=== PATIENT | female | born 1960 | race Caucasian/White ===

== ENCOUNTER → 2018-05-04 13:06 | Outpatient (CLI) | payer MEDICAID, SELFPAY ==
[2018-05-04 13:21] LABS: Abs Immature Grans 0.01 k/cumm (0.0-0.09); Absolute Basophil Count 0.02 k/cumm (0.0-0.2); Absolute Eosinophil Count 0.06 k/cumm (0.0-0.7); Absolute Lymphocyte Count 1.43 k/cumm (1.2-3.4); Absolute Monocyte Count 0.36 k/cumm (0.11-0.7); Absolute Neutrophil Count 2.41 k/cumm (1.2-6.7); Basophils % 0.5; Eosinophils % 1.4; HCT 38.3 % (36.0-46.0); HGB 13.3 g/dL (12.0-15.5); Immature Grans % 0.2; Lymphocytes % 33.3; Mean Corp. HGB Concentration 34.7 g/dL (32.0-36.0); Mean Corpuscular Hemoglobin 30.2 pg (27.0-33.0); Mean Corpuscular Volume 86.8 fL (80-95); Mean Platelet Volume 9.2 fL (8.0-11.0); Monocytes % 8.4; Neutrophils % 56.2; Platelet Count 194 x1000/uL (130-400); RBC 4.41 m/cumm (4.00-5.20); White Blood Cell Count 4.29 k/cumm (4.4-10.8)
[2018-05-04 13:54] LABS: ALT 20 U/L (12-78); AST 15 U/L (15-37); Alkaline Phosphatase 75 U/L (46-116); Anion Gap 5.7 mmol/L (3-11); BUN 16 mg/dL (7-18); Bilirubin, Total 1.1 mg/dL (0.2-1.0); CO2 29.3 mmol/L (21.0-32.0); CREATININE 0.84 mg/dL (0.55-1.02); Chloride 106 mmol/L (98-107); Glucose 127 mg/dL (70-100); Potassium 3.5 mmol/L (3.5-5.1); Sodium 141 mmol/L (136-145)
== END ==
PROVIDERS: PCP Family Medicine; Visit Provider Internal Medicine
DX: C50.912 Malignant neoplasm of unspecified site of left female breast (principal); Z17.0 Estrogen receptor positive status [ER+]
CPT/HCPCS: 36415; 80053; 85025

== ENCOUNTER 2018-11-25 11:15 | Outpatient (CLI) | payer MEDICAID, SELFPAY ==
[2018-11-25 11:31] LABS: Abs Immature Grans 0.01 k/cumm (0.0-0.09); Absolute Basophil Count 0.03 k/cumm (0.0-0.2); Absolute Eosinophil Count 0.07 k/cumm (0.0-0.7); Absolute Lymphocyte Count 1.89 k/cumm (1.2-3.4); Absolute Monocyte Count 0.46 k/cumm (0.11-0.7); Absolute Neutrophil Count 2.49 k/cumm (1.2-6.7); Basophils % 0.6; Eosinophils % 1.4; HCT 38.6 % (36.0-46.0); HGB 13.4 g/dL (12.0-15.5); Immature Grans % 0.2; Lymphocytes % 38.2; Mean Corp. HGB Concentration 34.7 g/dL (32.0-36.0); Mean Corpuscular Hemoglobin 29.8 pg (27.0-33.0); Mean Corpuscular Volume 85.8 fL (80-95); Mean Platelet Volume 9.3 fL (8.0-11.0); Monocytes % 9.3; Neutrophils % 50.3; Platelet Count 203 x1000/uL (130-400); RBC Distribution Width 13.1 % (11.7-14.6); White Blood Cell Count 4.95 k/cumm (4.4-10.8)
[2018-11-25 11:43] LABS: ALT 22 U/L (12-78); AST 18 U/L (15-37); Albumin 4.2 g/dL (3.4-5.0); Alkaline Phosphatase 102 U/L (46-116); Anion Gap 7.8 mmol/L (3-11); BUN 17 mg/dL (7-18); Bilirubin, Total 1.2 mg/dL (0.2-1.0); CO2 28.2 mmol/L (21.0-32.0); CREATININE 0.78 mg/dL (0.55-1.02); Calcium 9.1 mg/dL (8.5-10.1); Chloride 103 mmol/L (98-107); Glucose 98 mg/dL (70-100); Potassium 4.1 mmol/L (3.5-5.1); Sodium 139 mmol/L (136-145); Total Protein 7.2 g/dL (6.4-8.2)
== END 2018-11-25 11:35 ==
PROVIDERS: PCP Family Medicine; Visit Provider Internal Medicine
DX: C50.811 Malignant neoplasm of overlapping sites of right female breast (principal); Z17.0 Estrogen receptor positive status [ER+]
CPT/HCPCS: 36415; 80053; 85025

== ENCOUNTER 2018-12-09 00:15 | Outpatient (CLI) | payer MEDICAID, SELFPAY ==
--- NOTE | 2018-12-09 13:32 | DI.MAMMO_ITS ---
SYMPTOMS/DIAGNOSIS: ANNUAL SCREENING, PERSONAL H/O BREAST CA, Z17.0 RIGHT BREAST MAMMOGRAM: Mammograms were interpreted according to the usual protocol including computer analysis with CAD system, tomosynthesis and C view imaging. The patient is status post left mastectomy for CA. The right breast is heterogeneously radiodense, which lowers the sensitivity of the study. There is no dominant mass. There are no suspicious calcifications and there has been no significant interval change when compared with prior images. SUMMARY: No evidence of malignancy, category 1. Yearly screening mammography is recommended. Breast density category C. MQSA ASSESSMENT OF FINDINGS: Negative. Category 1. Patient will receive a letter notifying them of these results. Bi-RADS category C. The breasts are heterogeneously dense, which may obscure small masses.
== END 2018-12-09 00:35 ==
PROVIDERS: PCP Family Medicine; Visit Provider Internal Medicine
DX: Z12.31 Encounter for screening mammogram for malignant neoplasm of breast (principal); Z80.3 Family history of malignant neoplasm of breast; Z90.12 Acquired absence of left breast and nipple
CPT/HCPCS: 77063; 77067

== ENCOUNTER 2019-06-16 12:40 | Outpatient (CLI) | payer MEDICAID, SELFPAY ==
[2019-06-16 13:10] LABS: Abs Immature Grans 0.02 k/cumm (0.0-0.09); Absolute Basophil Count 0.02 k/cumm (0.0-0.2); Absolute Eosinophil Count 0.09 k/cumm (0.0-0.7); Absolute Lymphocyte Count 1.61 k/cumm (1.2-3.4); Absolute Monocyte Count 0.47 k/cumm (0.11-0.7); Absolute Neutrophil Count 2.81 k/cumm (1.2-6.7); Basophils % 0.4; Eosinophils % 1.8; HCT 39.4 % (36.0-46.0); HGB 13.6 g/dL (12.0-15.5); Immature Grans % 0.4; Lymphocytes % 32.1; Mean Corp. HGB Concentration 34.5 g/dL (32.0-36.0); Mean Corpuscular Hemoglobin 29.8 pg (27.0-33.0); Mean Corpuscular Volume 86.4 fL (80-95); Mean Platelet Volume 9.2 fL (8.0-11.0); Monocytes % 9.4; Neutrophils % 55.9; Platelet Count 228 x1000/uL (130-400); RBC 4.56 m/cumm (4.00-5.20); White Blood Cell Count 5.02 k/cumm (4.4-10.8)
[2019-06-16 14:33] LABS: ALT 17 U/L (14-59); AST 16 U/L (15-37); Albumin 4.2 g/dL (3.4-5.0); Alkaline Phosphatase 69 U/L (46-116); Anion Gap 6.2 mmol/L (3-11); BUN 15 mg/dL (7-18); Bilirubin, Total 1.1 mg/dL (0.2-1.0); CO2 31.8 mmol/L (21.0-32.0); CREATININE 0.81 mg/dL (0.55-1.02); Calcium 8.9 mg/dL (8.5-10.1); Chloride 101 mmol/L (98-107); Glucose 148 mg/dL (70-100); Potassium 3.9 mmol/L (3.5-5.1); Sodium 139 mmol/L (136-145)
== END 2019-06-16 13:00 ==
PROVIDERS: PCP Family Medicine; Visit Provider Internal Medicine
DX: C50.811 Malignant neoplasm of overlapping sites of right female breast (principal); Z17.0 Estrogen receptor positive status [ER+]
CPT/HCPCS: 36415; 80053; 85025

== ENCOUNTER 2020-01-10 16:01 | Emergency (ER) | payer MEDICAID, SELFPAY ==
[2020-01-10 16:05] VITALS: BP 116/99; PULSE 71; RESP 16; TEMP 36.2; O2SAT 98
--- NOTE | 2020-01-10 16:05 | ED.GENADUL_ITS ---
Discharge Plan Disposition Patient Disposition: HOME Condition: Good Discharge Details Chief Complaint: Laceration Clinical Impression: Puncture wound of hand, Hand laceration Primary Care Provider: Floyd Carrero ED Provider: Sahara Polanco Home Meds and New Rx's Prescriptions: New cephalexin [Keflex] 500 mg capsule 500 mg PO QID Qty: 20 RF: 0 Continued Excedrin Extra Strength 1 EACH tablet 2 cap PO PRN PRNRF: 0 letrozole 2.5 mg Tablet 2.5 mg PO DAILY RF: 0 Discharge Instructions Instructions: Puncture Wound (ED), Skin Adhesive Care (ED) Additional Instructions: Keep wound clean, dry, covered. Monitor for signs of infection including redness, warmth, drainage, drainage, increased pain. If you develop these or other new/worsening symptoms please seek care urgently once again. Please take antibiotics as prescribed. Please follow up with primary care for wound evaluation. Care for adhesive as discussed. Referrals: Floyd Carrero [Primary Care Provider] - Discharge Data Discharge Date/Time-TO BE ENTERED AT DEPARTURE: 01/10/20 17:17 Medical Decision Making Patient is a pleasant 59 year old RHD female presenting today with c/c of laceration to left hand. She states that she suffered laceration when she slipped with a knife when trying to cut a zip tie. Last tetanus was fall 2019. Denies numbness/tingling. Denies other injury at the curry of the event. States she has not have difficulty with ROM. On exam, patient has a 2cm entry wound over the left thenar emmenance. She has a 5mm exit wound on the radial side of the thumb. No active bleeding. No surronding erythema, warmth, drainage. Brisk capillary refill. 2 point sensation intact. No ligamentous injury noted on exam. Able to flex and extend well against resistance. Patient has a through and through wound, as this is near the thumb, will obtain x-ray to evaluate for possible bony involvement. FINDINGS: Bones/joints: There is no evidence of acute fracture. No dislocation.The joint spaces and articular surfaces are intact. Soft tissues: Normal. No soft tissue gas densities are identified.There is no evidence of a radiopaque foreign body. IMPRESSION: No acute findings. Discussed findings with the patient. We discussed closure options. The wound edges are well approximated without intervention, will thoroughly clean and close with adhesive. She and I discussed expected procedural steps, risks/benefits. She voices understanding and wishes to proceed. Wound was copiously irrigated, was able to irrigate through the wound. Explored with no FB or debris noted. Thin layer of adhesive applied over entrance wound. The small exit wound was kept open to allow for drainage as thisis a puncture wound. Patient will be placed on Keflex. She was given return precautions. We discussed care of the adhesive. She was given first dose of antibiotics while in the department. She will call PCP for f/u appointment. All of her questions and concerns were addressed, she is in agreement with this plan. HPI General Mode of arrival: ambulatory . Date/Time Provider Initiated Documentation: 01/10/20 16:05 . Limitations to Documentation: no limitations . Information obtained by: patient and RN notes reviewed . History of Present Illness 59 year old F presents to the emergency department with the chief complaint of laceration right hand, described as mild, with intensity rated at 2. Quality is described as aching, and is localized to the left and upper extremity. Patient reports no radiation. Patient started experiencing this minute(s) and it has been constant. Immobilization improves symptom(s), Movement worsens symptoms . Patient notes no other symptoms.. Patient did receive the following treatments prior to arrival, none Related Data Home Medications Medication Instructions Recorded Confirmed Excedrin Extra Strength 2 cap PO PRN PRN 01/09/15 01/10/20 cephalexin [Keflex] 500 mg PO QID #20 cap 01/10/20 letrozole 2.5 mg PO DAILY 01/10/20 01/10/20 Previous Rx's Medication Instructions Recorded cephalexin [Keflex] 500 mg PO QID #20 cap 01/10/20 Allergies Allergy/AdvReac Type Severity Reaction Status Date / Time No Known Allergies Allergy Unverified 01/10/20 16:07 Review of Systems Constitutional Constitutional: Reports as per HPI, Denies chills and Denies fever(s) Musculoskeletal Musculoskeletal: Reports as per HPI Integumentary/Breasts Skin/Breast: Reports as per HPI Neurologic Neurologic: Reports as per HPI, Denies sensory deficit and Denies paresthesias [facility] Medical History Adenocarcinoma of left breast (Acute 09/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 s/p L total mastectomy. 15yr calculated mortality 11%. On aromatase inhibitor. cancer of the cervix microinvasive. Rx with [facility] 1995. No XRT or chemo. Paps of vaginal cuff yearly. Cervical cancer (Acute 01/04/14) s/p hysterectomy. Family history of colon cancer pt's brother from Colon [place] - had nl colonoscopy 5yrs previous. Family hx of colon cancer requiring screening colonoscopy (Acute 01/04/14) Osteopenia after menopause (Acute) Dexa Scan. 2017.Rx Prolia at [facility] [place] Onc Dept Q6mo. Surgical History Abdominal hysterectomy 1995 for microinvasive cervical CA. Ovarian preservation. Appendectomy Arthroplasty of knee Biopsy, Soft Tissue (09/19/16) left breast mass, core needle biopsy, adenocarcinoma, invasive, ductal type, nuclear grade II Breast, Mastectomy (10/08/16) left breast, with neg sentinel node biopsy Family History Mother Personal history of malignant neoplasm lung cancer - former tobacco user Brother Personal history of malignant neoplasm colorectal CA - Grandmother Diabetes Social History Smoking/Tobacco Use Status: Never Alcohol Intake: never Drug use: Never Substance use type: does not use Do you feel safe at home: Yes Do you feel safe in your relationship?: Yes Exam Const General: cooperative, healthy appearing, comfortable, no acute distress and well developed Nutritional Appearance: average body habitus and well nourished Orientation: alert and awake Resp Effort & Inspection: normal respiratory effort, able to speak in complete sentences and no respiratory distress Cardio Rate: regular rate Rhythm: regular rhythm Skin Trauma: laceration (as drawn below) Neuro General: patient alert and patient awake Cognition: normal cognition Speech: speech normal Gait: normal gait Sensory Exam: no sensory deficits noted Extrem Left upper extremity: full ROM, normal capillary refill, no joint enlargement, wrist Details: normal to inspection and hand Details: normal capillary refill, neuromotor exam normal, neurosensory exam normal (2 point intact), tenderness (over area of laceration), vascular exam Details: radial pulse present and normal capillary refill, normal ROM of fingers, no swelling and laceration (2cm laceration thenar emminance, 5mm radial side of thumb); abnormal to inspection (laceration as drawn below) Hand/finger images: 1. 2. areas of laceration. No surrounding erythema, warmth, drainage. Discomfort between the wounds Psych Appearance: grossly normal and well kempt Mental Status: mental status grossly normal Speech and Movement: speech and movement normal
--- NOTE | 2020-01-10 16:15 | DI.RAD_ITS ---
EXAM: XR HAND LT COMPLETE CLINICAL HISTORY: laceration, ?bony involvement. TECHNIQUE: 2D digital imaging was performed. COMPARISON: No exams were available for comparison FINDINGS: BONES: No acute fracture is present. No bony destructive lesion is seen. JOINTS: No dislocation present. SOFT TISSUE: Normal. IMPRESSION: Unremarkable radiographs of the left hand. DATA REPOSITORY: RADIATION DOSE DELIVERED:
--- NOTE | 2020-01-10 16:44 | DI.VRAD_ITS ---
PROCEDURE INFORMATION: Exam: XR Left Hand Exam date and time: 01/10/2020 4:37 PM Age: 59 years old Clinical indication: Injury or trauma; Injury history: Laceration; Initial encounter; Hand; Left TECHNIQUE: Imaging protocol: XR Left hand. Views: 3 or more views. COMPARISON: No relevant prior studies available. FINDINGS: Bones/joints: There is no evidence of acute fracture. No dislocation.The joint spaces and articular surfaces are intact. Soft tissues: Normal. No soft tissue gas densities are identified.There is no evidence of a radiopaque foreign body. IMPRESSION: No acute findings. Dictated and Authenticated by: Joselyn Oliveira MD. Ordering:YOMAIRA Shoemaker MD
[2020-01-10] MEDS: Cephalexin 500 MG CAP PO (17:16)
== END 2020-01-10 17:17 | disposition home or self-care (01) ==
PROVIDERS: Emergency Provider Physician Assistant; PCP Family Medicine
DX: S61.432A Puncture wound without foreign body of left hand, initial encounter (principal); W26.0XXA Contact with knife, initial encounter
CPT/HCPCS: 12001; 99283; 73130; 99281

== ENCOUNTER 2020-01-25 01:03 | Outpatient (CLI) | payer MEDICAID, SELFPAY ==
[2020-01-25 08:49] LABS: Abs Immature Grans 0.02 k/cumm (0.0-0.09); Absolute Basophil Count 0.02 k/cumm (0.0-0.2); Absolute Eosinophil Count 0.07 k/cumm (0.0-0.7); Absolute Lymphocyte Count 1.69 k/cumm (1.2-3.4); Absolute Monocyte Count 0.52 k/cumm (0.11-0.7); Absolute Neutrophil Count 2.47 k/cumm (1.2-6.7); Basophils % 0.4; Eosinophils % 1.5; HCT 40.5 % (36.0-46.0); HGB 13.9 g/dL (12.0-15.5); Immature Grans % 0.4 %; Lymphocytes % 35.3; Mean Corp. HGB Concentration 34.3 g/dL (32.0-36.0); Mean Corpuscular Hemoglobin 29.9 pg (27.0-33.0); Mean Corpuscular Volume 87.1 fL (80-95); Mean Platelet Volume 9.1 fL (8.0-11.0); Monocytes % 10.9; Neutrophils % 51.5; Platelet Count 233 x1000/uL (130-400); RBC 4.65 m/cumm (4.00-5.20); RBC Distribution Width 13.2 % (11.7-14.6); White Blood Cell Count 4.79 k/cumm (4.4-10.8)
[2020-01-25 09:01] LABS: ALT 22 U/L (14-59); AST 20 U/L (15-37); Albumin 4.1 g/dL (3.4-5.0); Alkaline Phosphatase 71 U/L (46-116); Anion Gap 5.9 mmol/L (3-11); BUN 16 mg/dL (7-18); Bilirubin, Total 1.5 mg/dL (0.2-1.0); CO2 30.1 mmol/L (21.0-32.0); CREATININE 0.77 mg/dL (0.55-1.02); Calcium 8.8 mg/dL (8.5-10.1); Chloride 104 mmol/L (98-107); Glucose 95 mg/dL (74-106); Sodium 140 mmol/L (136-145); Total Protein 7.3 g/dL (6.4-8.2)
== END 2020-01-25 01:23 ==
PROVIDERS: PCP Family Medicine; Visit Provider Internal Medicine
DX: C50.911 Malignant neoplasm of unspecified site of right female breast (principal); Z17.0 Estrogen receptor positive status [ER+]
CPT/HCPCS: 36415; 80053; 85025

== ENCOUNTER 2020-06-19 00:12 | Outpatient (CLI) | payer MEDICAID, SELFPAY ==
--- NOTE | 2020-06-19 13:45 | DI.MAMMO_ITS ---
EXAM: MG MAMMO SCREENING 60 MIN DUR CLINICAL HISTORY: SCREENING, ANNUAL, PERSONAL H/O BREAST CA,C50.912 TECHNIQUE: Mammograms were interpreted according to the usual protocol including computer analysis w [employer] CAD system, tomosynthesis and 2D or C-view imaging. COMPARISON: 2010 through 2018 FINDINGS: Patient is status post left mastectomy. The right breast is composed of heterogeneously dense fibrog landular tissue which decreases the sensitivity of the mammogram. No suspicious masses or suspicious microcalcifications are seen. There has been no significant change. IMPRESSION: Negative right mammogram. BI-RADS Category 1 - Negative Breast Density - Category C - Heterogeneously dense A negative radiographic report should not delay biopsy if a dominant or clinically suspicious mass is present. Up to ten percent of cancers are not identified on mammography. A negative report may reinforce clinical impression. Adenosis and dense breasts may obscure an underlying neoplasm. False positive reports average 6 to 10%. Patient will receive a letter notifying them of these results. The patient will receive a letter notifying them of these results.
== END 2020-06-19 00:32 ==
PROVIDERS: PCP Family Medicine; Visit Provider Internal Medicine
DX: Z12.31 Encounter for screening mammogram for malignant neoplasm of breast (principal); C50.912 Malignant neoplasm of unspecified site of left female breast
CPT/HCPCS: 77063; 77067

== ENCOUNTER 2020-06-29 16:45 | Outpatient (REF) | payer MEDICAID, SELFPAY ==
[2020-06-29 19:26] LABS: Calculated LDL 172 mg/dL (<100); Cholesterol 251 mg/dL (<200); HDL Cholesterol 68 mg/dL (40-60); Triglyceride 55 mg/dL (<150)
== END 2020-06-29 17:05 ==
LOC: NCHCN 16:45
PROVIDERS: PCP Family Medicine; Visit Provider Nurse Practitioner Family
DX: Z00.00 Encounter for general adult medical examination without abnormal findings (principal)
CPT/HCPCS: 80061

== ENCOUNTER 2020-07-16 02:41 | Outpatient (CLI) | payer MEDICAID, SELFPAY ==
[2020-07-16 13:43] LABS: Abs Immature Grans 0.03 10^3/uL (0.0-0.06); Absolute Basophil Count 0.02 10^3/uL (0.0-0.2); Absolute Eosinophil Count 0.04 10^3/uL (0.0-0.7); Absolute Lymphocyte Count 1.88 10^3/uL (1.2-3.4); Absolute Monocyte Count 0.52 10^3/uL (0.1-0.8); Absolute Neutrophil Count 3.18 10^3/uL (1.2-6.7); Basophils % 0.4; Eosinophils % 0.7; HCT 39.3 % (36.0-46.0); HGB 13.4 g/dL (11.2-15.7); Immature Grans % 0.5; Lymphocytes % 33.2; MCH 29.6 pg (27.0-33.0); MCHC 34.1 % (32.0-36.0); MCV 86.9 fL (80-95); MPV 9.3 fL (8.0-11.0); Monocytes % 9.2; Nucleated RBC 0 %; Platelet Count 210 10^3/uL (130-400); RBC 4.52 10^6/uL (3.93-5.22); RDW 12.9 % (11.7-14.6); RDW-SD 40.8 fL; WBC 5.67 10^3/uL (4.4-10.8)
[2020-07-16 14:28] LABS: ALT 26 U/L (14-59); AST 22 U/L (15-37); Albumin 4.2 g/dL (3.4-5.0); Alkaline Phosphatase 77 U/L (46-116); Anion Gap 6.5 mmol/L (3-11); BUN 15 mg/dL (7-18); CO2 30.5 mmol/L (21.0-32.0); CREATININE 0.74 mg/dL (0.55-1.02); Calcium 8.8 mg/dL (8.5-10.1); Chloride 104 mmol/L (98-107); Glucose 91 mg/dL (74-106); Potassium 3.8 mmol/L (3.5-5.1); Sodium 141 mmol/L (136-145); Total Protein 6.9 g/dL (6.4-8.2)
== END 2020-07-16 03:01 ==
PROVIDERS: PCP Family Medicine; Visit Provider Internal Medicine
DX: C50.911 Malignant neoplasm of unspecified site of right female breast (principal); Z17.0 Estrogen receptor positive status [ER+]
CPT/HCPCS: 36415; 80053; 85025

== ENCOUNTER 2020-11-21 00:56 | Outpatient (CLI) | payer MEDICAID, SELFPAY ==
--- NOTE | 2020-11-21 | DI.DEXA_ITS ---
EXAM: XR DEXA BONE DENSITY W/WO CHITO CLINICAL HISTORY: BREAST CA,C50.912,? OSTEOPOROSIS,H/O OSTEOPENIA,ON ALF AROMATASE TECHNIQUE: Routine DEXA evaluation of the lumbar spine, hip, or forearm. COMPARISON: DEXA scan December 2016 FINDINGS: Performed on a Holophorus unit. Lateral image: No compression fracture evident. Lumbar Spine total T-score: -0.8. Prior T-score reading was -1.3 in December 2016 Hip total T-score:-1.8 . Prior reading December 2016 was -1.7 Forearm total T-score: -1.2 IMPRESSION: Bone mineral density measures in the osteopenia range. Fracture risk is moderate. Note: Any spine fracture indicates 5x risk for subsequent spine fracture and 2x risk for subsequent h ip fracture. World Health Organization criteria for BMD interpretation classify patients: Normal...... T- Score at or above -1.0 Osteopenic... T- Score between -1.0 and -2.5 Osteoporosis... T-Score at or below -2.5
== END 2020-11-21 01:16 ==
PROVIDERS: PCP Family Medicine; Visit Provider Internal Medicine
DX: M85.89 Other specified disorders of bone density and structure, multiple sites (principal); C50.912 Malignant neoplasm of unspecified site of left female breast
CPT/HCPCS: 77080

== ENCOUNTER 2020-11-23 18:26 | Emergency (ER) | payer MEDICAID, SELFPAY ==
[2020-11-23] VITALS (22 sets, daily range): BP systolic 113–152; BP diastolic 70–86; PULSE 67–86; RESP 15–22; TEMP 37.1–37.2; O2SAT 95–98
--- NOTE | 2020-11-23 18:15 | RT.EKG_ITS ---
APPROVED REPORT Exam: Resting ECG Patient Location: E HR:77 bpm ECG Measurements Heart Rate 77 AXIS RI 163 P 85 QRSd 89 QRS -14 QT 374 T 56 QTc 425 Conclusion Sinus rhythm...normal P axis, V-rate 60- 99 I have reviewed and interpreted ECG and agree with software generated interpretation.
--- NOTE | 2020-11-23 18:30 | DI.RAD_ITS ---
EXAM: XR PORTABLE CHEST AP CLINICAL HISTORY: left sided chest pain. TECHNIQUE: 2D digital imaging was performed. COMPARISON: CR CHEST 2 VIEWS PA,LAT from 04/03/2011 FINDINGS: Heart size is normal. The mediastinum is not widened. No infiltrates nor pleural effusions. No pulmonary edema. No pneumothorax. Chest leads in place IMPRESSION: No acute pulmonary findings on this single AP portable view of the chest. DATA REPOSITORY: RADIATION DOSE DELIVERED:
--- NOTE | 2020-11-23 18:31 | ED.GENADUL_ITS ---
Discharge Plan Disposition Patient Disposition: HOME Condition: Good Discharge Details Clinical Impression: Chest pain, pleuritic Primary Care Provider: Floyd Carrero ED Provider: Sahara Polanco Home Meds and New Rx's Prescriptions: Continued letrozole 2.5 mg Tablet 2.5 mg PO DAILY RF: 0 Discharge Instructions Instructions: Chest Pain (ED) Additional Instructions: Labs and imaging are reassuring today. Please encourage water intake. You may continue with Tylenol and/or ibuprofen as needed for discomfort. Please encourage deep breathing to help prevent pneumonia. Please follow-up with primary care in 1 week for reevaluation. If you develop shortness of breath, fever/chills, increased pain, increased sputum production or other new/worsening symptoms please seek care urgently once again. Referrals: Floyd Carrero [Primary Care Provider] - Discharge Data Discharge Date/Time-TO BE ENTERED AT DEPARTURE: 11/23/20 20:40 Medical Decision Making Patient is a pleasant 60-year-old female presenting today with chief complaint of left-sided chest pain that began proximally 3 days ago. She denies any trauma. No shortness of breath. Pain is worse with coughing and deep breaths. This is not exertional shortness of breath, not worse with going up stairs or walking. Has not noted any rash. Patient does report that she had a chronic cough and associated with allergens, began allergy shots 1 month ago. Past medical history is pertinent for adenocarcinoma of the left breast. Patient is status post total mastectomy on the side. States that 4 years ago when she had her last treatment and has been clear since then. States that she did have some left lower leg pain but attributed this to pulled muscle. Denies any fevers or chills. No personal or family history of cardiac disease. No personal or family history of blood clots. On exam, patient appears nontoxic. Lung sounds are clear. Normal cardiac exam. No lower extremity swelling or calf tenderness. No pain elicited with palpation about the chest or with AP/lateral chest wall compression. She does have pain with deep inspiration. Differential diagnosis includes PE, pneumonia, pleuritis. Her history and exam is not consistent with ACS although we will screen an EKG and troponin. I do not see any evidence of shingles on exam. She does not appear to be having any issue with her postsurgical scarring or tissue. No palpable mass. No radiating pain or constant pain to suggest dissection. Also considered spontaneous pneumothorax although, is very risk factors, I find this less likely. Will obtain chest x-ray, baseline labs including D-dimer. Discussed this plan with the patient who is in agreement. FINDINGS: Lungs: Unremarkable. No consolidation. Pleural spaces: Unremarkable. No pleural effusion. No pneumothorax. Heart/Mediastinum: Unremarkable. No cardiomegaly. Bones/joints: Unremarkable. IMPRESSION: No acute abnormality. Labs reviewed. No leukocytosis. Stable H&H. D-dimer within normal limits. No significant abnormality on the CMP. Troponin less than 0.05. I discussed these findings with the patient. She is now wondering if this may be musculoskeletal in nature associated with her chronic cough. We did discuss pleuritis. I encourage close follow-up with her primary care. We did discuss treatment options to help with her discomfort. Return precautions were discussed at length. All of her questions and concerns were addressed and she is in agreement this plan. HPI General Mode of arrival: ambulatory . Date/Time Provider Initiated Documentation: 11/23/20 18:31 . Limitations to Documentation: no limitations . Information obtained by: patient and RN notes reviewed . History of Present Illness 60 year old F presents to the emergency department with the chief complaint of left sided chest pain, described as severe, with intensity rated at 9. Quality is described as aching, and is localized to the chest. Patient reports no radiation. Patient started experiencing this day(s) (3) and it has been constant. Immobilization improves symptom(s), and other things that improve symptom(s), (not worsened with stairs or ambulation) Movement worsens symptoms (deep breaths, coughing) . Patient notes chest pain and cough (reports this is chronic, began allergy inections one month ago); denies diaphoresis, fever/chills, loss of appetite, nausea/vomiting, rash, shortness of breath and weakness. Patient did receive the following treatments prior to arrival, none Related Data Home Medications Medication Instructions Recorded Confirmed letrozole 2.5 mg PO DAILY 01/10/20 11/23/20 Allergies Allergy/AdvReac Type Severity Reaction Status Date / Time mold Allergy Mild Verified 11/23/20 18:34 General RIAN: 4 Review of Systems Constitutional Constitutional: Reports as per HPI, Denies chills, Denies fever(s), Denies headache(s), Denies lethargy and Denies poor appetite Eyes Eyes: Denies change in vision ENT Ears, Nose, Mouth, and Throat: Denies dizziness and Denies headache(s) Cardiovascular Cardiovascular: Reports as per HPI, Denies dyspnea and Denies dyspnea on exertion Respiratory Respiratory: Reports as per HPI, Denies chest congestion, Denies cough, Denies pain on inspiration, Denies pain with cough, Denies dyspnea, Denies dyspnea on exertion and Denies wheezing Gastrointestinal Gastrointestinal: Reports as per HPI, Denies abdominal pain, Denies diarrhea, Denies nausea and Denies vomiting Musculoskeletal Musculoskeletal: Reports as per HPI and Denies back pain Integumentary/Breasts Skin/Breast: Reports as per HPI and Denies rash Neurologic Neurologic: Reports as per HPI, Denies dizziness and Denies headache(s) Allergic/Immunologic Allergic/Immunologic: Denies wheezing PFSH Medical History (Updated 11/23/20 @ 20:36 by ANTONIO Augustin) Adenocarcinoma of left breast (09/24/16) Stage 1 ER+/HI+, Her-2/shawna neg. s/p L total mastectomy. 15yr calculated mortality 11%. On aromatase inhibitor. cancer of the cervix microinvasive. Rx with [facility] 1995. No XRT or chemo. Paps of vaginal cuff yearly. Cervical cancer (01/04/14) s/p hysterectomy. Family history of colon cancer pt's brother from Colon [place] - had nl colonoscopy 5yrs previous. Family hx of colon cancer requiring screening colonoscopy (01/04/14) Osteopenia after menopause Dexa Scan. 2017.[place] Prol[place] [facility] [place]. Surgical History Abdominal hysterectomy 1995 for microinvasive cervical CA. Ovarian preservation. Appendectomy Arthroplasty of knee Biopsy, Soft Tissue (09/19/16) left breast mass, core needle biopsy, adenocarcinoma, invasive, ductal type, nuclear grade II Breast, Mastectomy (10/08/16) left breast, with neg sentinel node biopsy Family History Mother Personal history of malignant neoplasm lung cancer - former tobacco user Brother Personal history of malignant neoplasm colorectal CA - Grandmother Diabetes Social History Smoking/Tobacco Use Status: Never Smoking risk assessment performed?: Yes Alcohol Intake: never Drug use: Never Substance use type: does not use Do you feel safe at home: Yes Do you feel safe in your relationship?: Yes Exam Const General: cooperative, healthy appearing, comfortable, no acute distress and well developed Nutritional Appearance: average body habitus and well nourished Orientation: alert, awake and oriented x3 [facility] Head: normal to inspection Ears: hearing grossly normal bilaterally Mouth: moist mucous membranes Chest Chest: normal inspection of the chest, normal palpation of entire chest wall, no crepitus, no localized rib tenderness, no tenderness and No rash Breast inspection: normal inspection of the breasts (patient s/p mastectomy) and normal inspection of the axillae Resp Effort & Inspection: normal respiratory effort, able to speak in complete sentences and no respiratory distress Auscultation: clear to auscultation bilaterally, no rales, no rhonchi and no wheezes Cardio Rate: regular rate Rhythm: regular rhythm Heart Sounds: S1 normal and S2 normal GI Inspection: normal to inspection, no edema and non-distended Palpation: soft, no hepatosplenomegaly, not firm, no guarding, not rigid and nontender Auscultation: normal bowel sounds Back/Spine/Pelvis Back: no CVA tenderness Thoracic/Lumbar Spine: thoracic and lumbar spine normal to inspection Skin General skin exam: no rashes or lesions noted Trauma: no lacerations or abrasions Neuro General: patient alert, patient awake and patient oriented x3 Cognition: normal cognition Speech: speech normal Gait: normal gait Extrem General: normal to inspection, capillary refill normal, no pedal edema, no calf tenderness and normal gait Psych Appearance: grossly normal and well kempt Mental Status: mental status grossly normal Speech and Movement: speech and movement normal
[2020-11-23 18:51] LABS: Abs Immature Grans 0.03 10^3/uL (0.0-0.06); Absolute Basophil Count 0.03 10^3/uL (0.0-0.2); Absolute Eosinophil Count 0.09 10^3/uL (0.0-0.7); Absolute Lymphocyte Count 2.32 10^3/uL (1.2-3.4); Absolute Monocyte Count 0.58 10^3/uL (0.1-0.8); Absolute Neutrophil Count 3.19 10^3/uL (1.2-6.7); Basophils % 0.5; Eosinophils % 1.4; HCT 40.9 % (36.0-46.0); HGB 13.9 g/dL (11.2-15.7); Immature Grans % 0.5; Lymphocytes % 37.2; MCH 29.9 pg (27.0-33.0); MPV 8.9 fL (8.0-11.0); Monocytes % 9.3; Neutrophils % 51.1; Nucleated RBC 0 %; Platelet Count 209 10^3/uL (130-400); RBC 4.65 10^6/uL (3.93-5.22); RDW 12.9 % (11.7-14.6); RDW-SD 41.3 fL; WBC 6.24 10^3/uL (4.4-10.8)
[2020-11-23 19:10] LABS: ALT 25 U/L (14-59); AST 16 U/L (15-37); Albumin 4.3 g/dL (3.4-5.0); Alkaline Phosphatase 77 U/L (46-116); Anion Gap 8.2 mmol/L (3-11); BUN 18 mg/dL (7-18); Bilirubin, Total 1.1 mg/dL (0.2-1.0); CO2 30.8 mmol/L (21.0-32.0); CREATININE 0.7 mg/dL (0.55-1.02); Calcium 9.5 mg/dL (8.5-10.1); Chloride 101 mmol/L (98-107); Glucose 112 mg/dL (74-106); Magnesium 2.2 mg/dL (1.8-2.4); PTT Activated 24.4 sec (21.0-27.5); Potassium 3.6 mmol/L (3.5-5.1); Sodium 140 mmol/L (136-145); Total Protein 7.6 g/dL (6.4-8.2)
[2020-11-23 19:19] LABS: Troponin I < 0.05 ng/mL (<0.06)
--- NOTE | 2020-11-23 19:23 | DI.VRAD_ITS ---
PROCEDURE INFORMATION: Exam: XR Chest Exam date and time: 11/23/2020 6:42 PM Age: 60 years old Clinical indication: On breathing; Patient HX: Left sided chest pain. TECHNIQUE: Imaging protocol: XR of the chest Views: 1 view. COMPARISON: No relevant prior studies available. FINDINGS: Lungs: Unremarkable. No consolidation. Pleural spaces: Unremarkable. No pleural effusion. No pneumothorax. Heart/Mediastinum: Unremarkable. No cardiomegaly. Bones/joints: Unremarkable. IMPRESSION: No acute abnormality. Dictated and Authenticated by: Pietro Byrd MD. Ordering:YOMAIRA Shoemaker MD
[2020-11-23 19:57] LABS: D-Dimer 249 ng/mlFEU (<500)
[2020-11-23] MEDS: Ibuprofen 600 MG TAB PO (20:41)
[2020-11-23] MEDS: Acetaminophen 325 MG TAB 650 MG PO (20:41)
== END 2020-11-23 20:40 | disposition home or self-care (01) ==
PROVIDERS: Emergency Provider Physician Assistant; PCP Family Medicine
DX: R07.1 Chest pain on breathing (principal)
CPT/HCPCS: 80053; 93005; 99284; 71045; 83735; 84484; 85025; 85379; 85610; 85730; 93010; 99283

== ENCOUNTER 2021-01-08 02:19 | Outpatient (CLI) | payer MEDICAID, SELFPAY ==
[2021-01-08 13:05] LABS: Abs Immature Grans 0.03 10^3/uL (0.0-0.06); Absolute Basophil Count 0.03 10^3/uL (0.0-0.2); Absolute Eosinophil Count 0.07 10^3/uL (0.0-0.7); Absolute Lymphocyte Count 1.64 10^3/uL (1.2-3.4); Absolute Monocyte Count 0.41 10^3/uL (0.1-0.8); Absolute Neutrophil Count 4.83 10^3/uL (1.2-6.7); Basophils % 0.4; HCT 38.7 % (36.0-46.0); HGB 13.3 g/dL (11.2-15.7); Immature Grans % 0.4; Lymphocytes % 23.4; MCH 30.6 pg (27.0-33.0); MCHC 34.4 % (32.0-36.0); MPV 9.2 fL (8.0-11.0); Monocytes % 5.8; Nucleated RBC 0 %; Platelet Count 207 10^3/uL (130-400); RBC 4.35 10^6/uL (3.93-5.22); RDW 12.7 % (11.7-14.6); RDW-SD 41.8 fL; WBC 7.01 10^3/uL (4.4-10.8)
[2021-01-08 15:16] LABS: ALT 21 U/L (14-59); AST 15 U/L (15-37); Alkaline Phosphatase 73 U/L (46-116); Anion Gap 8.9 mmol/L (3-11); BUN 17 mg/dL (7-18); Bilirubin, Total 0.9 mg/dL (0.2-1.0); CO2 30.1 mmol/L (21.0-32.0); CREATININE 0.8 mg/dL (0.55-1.02); Calcium 8.8 mg/dL (8.5-10.1); Chloride 104 mmol/L (98-107); Glucose 186 mg/dL (74-106); Potassium 3.6 mmol/L (3.5-5.1); Sodium 143 mmol/L (136-145); Total Protein 6.6 g/dL (6.4-8.2)
== END 2021-01-08 02:20 | disposition home or self-care (01) ==
LOC: LBO 02:19
PROVIDERS: PCP Family Medicine; Visit Provider Internal Medicine
DX: C50.911 Malignant neoplasm of unspecified site of right female breast (principal); Z17.0 Estrogen receptor positive status [ER+]
CPT/HCPCS: 36415; 80053; 85025

== ENCOUNTER 2021-07-04 02:11 | Outpatient (CLI) | payer MEDICAID, SELFPAY ==
[2021-07-04 14:31] LABS: Abs Immature Grans 0.02 10^3/uL (0.0-0.06); Absolute Basophil Count 0.03 10^3/uL (0.0-0.2); Absolute Eosinophil Count 0.08 10^3/uL (0.0-0.7); Absolute Lymphocyte Count 1.47 10^3/uL (1.2-3.4); Absolute Monocyte Count 0.43 10^3/uL (0.1-0.8); Basophils % 0.6; Eosinophils % 1.7; HCT 39.4 % (36.0-46.0); HGB 12.8 g/dL (11.2-15.7); Immature Grans % 0.4; Lymphocytes % 31.7; MCH 29.2 pg (27.0-33.0); MCHC 32.5 % (32.0-36.0); MPV 9.4 fL (8.0-11.0); Monocytes % 9.3; Neutrophils % 56.3; Nucleated RBC 0 %; Platelet Count 213 10^3/uL (130-400); RBC 4.38 10^6/uL (3.93-5.22); RDW 12.7 % (11.7-14.6); RDW-SD 42.5 fL; WBC 4.63 10^3/uL (4.4-10.8)
[2021-07-04 15:37] LABS: ALT 25 U/L (14-59); AST 18 U/L (15-37); Albumin 4.1 g/dL (3.4-5.0); Alkaline Phosphatase 65 U/L (46-116); Anion Gap 6.1 mmol/L (3-11); BUN 15 mg/dL (7-18); Bilirubin, Total 0.9 mg/dL (0.2-1.0); CO2 30.9 mmol/L (21.0-32.0); CREATININE 0.7 mg/dL (0.55-1.02); Calcium 9.1 mg/dL (8.5-10.1); Chloride 108 mmol/L (98-107); Glucose 99 mg/dL (74-106); Sodium 145 mmol/L (136-145); Total Protein 6.6 g/dL (6.4-8.2)
== END 2021-07-04 02:12 | disposition home or self-care (01) ==
PROVIDERS: PCP Family Medicine; Visit Provider Nurse Practitioner Adult Health
DX: C50.911 Malignant neoplasm of unspecified site of right female breast (principal); Z17.0 Estrogen receptor positive status [ER+]; Z79.811 Long term (current) use of aromatase inhibitors; M85.88 Other specified disorders of bone density and structure, other site
CPT/HCPCS: 36415; 80053; 85025

== ENCOUNTER 2022-01-07 02:31 | Outpatient (CLI) | payer MEDICAID, SELFPAY ==
[2022-01-07 11:05] LABS: Abs Immature Grans 0.02 10^3/uL (0.0-0.06); Absolute Basophil Count 0.02 10^3/uL (0.0-0.2); Absolute Eosinophil Count 0.04 10^3/uL (0.0-0.7); Absolute Lymphocyte Count 1.43 10^3/uL (1.2-3.4); Absolute Monocyte Count 0.44 10^3/uL (0.1-0.8); Basophils % 0.5; Eosinophils % 0.9; HCT 39.8 % (36.0-46.0); HGB 13.1 g/dL (11.2-15.7); Immature Grans % 0.5; Lymphocytes % 33.6; MCH 28.8 pg (27.0-33.0); MCHC 32.9 % (32.0-36.0); MCV 88 fL (80-95); MPV 9.2 fL (8.0-11.0); Monocytes % 10.4; Neutrophils % 54.1; Platelet Count 192 10^3/uL (130-400); RBC 4.55 10^6/uL (3.93-5.22); RDW 12.9 % (11.7-14.6); RDW-SD 41.4 fL; WBC 4.25 10^3/uL (4.4-10.8)
[2022-01-07 11:57] LABS: ALT 15 U/L (14-59); AST 15 U/L (15-37); Albumin 4.2 g/dL (3.4-5.0); Alkaline Phosphatase 62 U/L (46-116); Anion Gap 5.8 mmol/L (3-11); BUN 18 mg/dL (7-18); Bilirubin, Total 1.3 mg/dL (0.2-1.0); CO2 30.2 mmol/L (21.0-32.0); CREATININE 0.7 mg/dL (0.55-1.02); Calcium 8.6 mg/dL (8.5-10.1); Chloride 105 mmol/L (98-107); Glucose 94 mg/dL (74-106); Potassium 4.4 mmol/L (3.5-5.1); Sodium 141 mmol/L (136-145); Total Protein 6.8 g/dL (6.4-8.2)
== END 2022-01-07 02:32 | disposition home or self-care (01) ==
PROVIDERS: PCP Family Medicine; Visit Provider Nurse Practitioner Adult Health
DX: C50.911 Malignant neoplasm of unspecified site of right female breast (principal); Z17.0 Estrogen receptor positive status [ER+]; Z79.811 Long term (current) use of aromatase inhibitors; M85.88 Other specified disorders of bone density and structure, other site
CPT/HCPCS: 36415; 80053; 85025

== ENCOUNTER → 2022-05-02 00:22 | Outpatient (CLI) | payer MEDICAID, SELFPAY ==
--- NOTE | 2022-05-02 | DI.MAMMO_ITS ---
Exam(s) MG MAMMO SCREENING 60 MIN DUR EXAM: MG MAMMO SCREENING 60 MIN DUR CLINICAL HISTORY: SCREENING, S/P LT MAST FOR BREAST CANCER,Z85.3. TECHNIQUE: Bilateral full field digital CC and MLO mammographic images were obtained with 3D tomosyn thesis and utilizing computer aided detection (CAD). COMPARISON: Prior mammograms were reviewed, the most recent being June 2020. There is been prior left mastectomy. FINDINGS: Fibroglandular tissue pattern of the right breast is again noted be dense, this somewhat the sensitiv ity mammogram for finding hidden underlying lesions. Some asymmetric tissue medially in the right breast is unchanged from all prior mammograms. Four [place], on the 3D cc view there is a very subtle suggestion of an area of architectural distort ion located approximately 3 cm in from the nipple, slightly medial of center. Spot compression view and ultrasound recommended There are no malignant-appearing microcalcification groups is region. IMPRESSION: Dense fibroglandular tissue. Subtle suggestion of a possible area of architectural distortion as see n medial of center on the CC view. Recommend additional imaging including spot compression view and ultrasound of the right breast. BI-RADS Category 0 - Assessment Incomplete: Need additional imaging evaluation Breast Density - Category C - Heterogeneously dense Breast density Category C or D implies that the patient has dense breast tissue. Dense breast tissue can make it harder to find cancer on a mammogram. Dense breast tissue is also associated with an incr eased risk of breast cancer. This information about the result of the mammogram report was provided to the patient to raise their awareness. Use this report when you speak with the patient about their risks for breast cancer, which includes their family history. At that time, you may recommend additional screening tests (Ultrasoun d or MRI) as these tests may add significant information. A negative radiographic report should not delay biopsy if a dominant or clinically suspicious mass is present. Up to ten percent of cancers are not identified on mammography. A negative report may reinforce clinical impression. Adenosis and dense breasts may obscure an underlying neoplasm. False positive reports average 6 to 10%. Patient will receive a letter notifying them of these results.
== END ==
PROVIDERS: PCP Family Medicine; Visit Provider Nurse Practitioner Adult Health
DX: Z12.31 Encounter for screening mammogram for malignant neoplasm of breast (principal); Z85.3 Personal history of malignant neoplasm of breast; Z90.12 Acquired absence of left breast and nipple; R92.8 Other abnormal and inconclusive findings on diagnostic imaging of breast
CPT/HCPCS: 77063; 77067

== ENCOUNTER → 2022-05-09 00:39 | Outpatient (CLI) | payer MEDICAID, SELFPAY ==
--- NOTE | 2022-05-09 09:35 | DI.MAMMO_ITS ---
Exam(s) MG MAMMO SCREEN CALL BACK UNI US BREAST RT LIMITED EXAM: MG MAMMO SCREEN CALL BACK UNI CLINICAL HISTORY: F/U ABNL MAMMO, ? ARCHITECTURAL DISTORTION MEDIAL OF CENTER, RT BREAST TECHNIQUE: Mammograms were interpreted according to the usual protocol including computer analysis w ith CAD system, tomosynthesis and C-view imaging. COMPARISON: FINDINGS: Additional mammographic views of the right breast and right breast ultrasound are interpreted in conj unction. These examinations were obtained to evaluate questionable area of asymmetric density or arc hitectural distortion seen on recent mammogram. Additional mammographic views fail to show a discret e mass or convincing architectural distortion. Breast ultrasound shows no evidence of a mass or cyst . IMPRESSION: No specific evidence of malignancy at this time. Follow-up unilateral right breast mammogram recomme nded in 6 months. BI-RADS Category 3 - 6 month - Probably Benign Finding: Recommend follow-up mammography in 6 months Breast Density - Category C - Heterogeneously dense
== END ==
PROVIDERS: PCP Family Medicine; Visit Provider Family Medicine
DX: Z12.31 Encounter for screening mammogram for malignant neoplasm of breast (principal); R92.8 Other abnormal and inconclusive findings on diagnostic imaging of breast; N64.59 Other signs and symptoms in breast
CPT/HCPCS: 76642; 77063; 77067

== ENCOUNTER 2022-07-01 02:23 | Outpatient (CLI) | payer MEDICAID, SELFPAY ==
[2022-07-01 14:32] LABS: ALT 17 U/L (14-59); AST 20 U/L (15-37); Albumin 3.9 g/dL (3.4-5.0); Alkaline Phosphatase 64 U/L (46-116); BUN 16 mg/dL (7-18); Bilirubin, Total 1.3 mg/dL (0.2-1.0); CREATININE 0.7 mg/dL (0.55-1.02); Calcium 8.8 mg/dL (8.5-10.1); Chloride 103 mmol/L (98-107); Estimated GFR 97.12 (mL/min/1.73m2); Glucose 148 mg/dL (74-106); Potassium 3.4 mmol/L (3.5-5.1); Sodium 139 mmol/L (136-145); Total Protein 6.8 g/dL (6.4-8.2)
== END 2022-07-01 02:24 | disposition home or self-care (01) ==
LOC: LBO 02:23
PROVIDERS: PCP Family Medicine; Visit Provider Internal Medicine
DX: C50.911 Malignant neoplasm of unspecified site of right female breast (principal)
CPT/HCPCS: 36415; 80053

== ENCOUNTER 2023-01-15 01:36 | Outpatient (CLI) | payer MEDICAID, SELFPAY ==
--- NOTE | 2023-01-15 14:00 | DI.DEXA_ITS ---
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 COMPARISON: Prior DEXA scan November 2020 FINDINGS: Performed on a Hol[employer] unit. Lateral image: No compression fracture evident. Lumbar Spine total T-score: -0.7. Prior 2020 reading was -0.8 Hip total T-score:-1.9. Prior 2020 reading was -1.8 Independent reading at the level of the femoral neck yields T-score of -1.4 Forearm total T-score: -0.9 IMPRESSION: Bone mineral density measures in the osteopenia range. Fracture risk is moderate. Note: Any spine fracture indicates 5x risk for subsequent spine fracture and 2x risk for subsequent h ip fracture. World Health Organization criteria for BMD interpretation classify patients: Normal...... T- Score at or above -1.0 Osteopenic... T- Score between -1.0 and -2.5 Osteoporosis... T-Score at or below -2.5
== END 2023-01-15 01:56 ==
LOC: DI 01:37
PROVIDERS: PCP Family Medicine; Visit Provider Nurse Practitioner Adult Health
DX: C50.911 Malignant neoplasm of unspecified site of right female breast (principal); Z17.0 Estrogen receptor positive status [ER+]; M85.89 Other specified disorders of bone density and structure, multiple sites
CPT/HCPCS: 77080

== ENCOUNTER 2025-05-26 02:06 | Outpatient (CLI) | payer MEDICARE, SELFPAY ==
--- NOTE | 2025-05-26 | DI.MAMMO_ITS ---
Exam(s) MG MAMMO SCREENING 60 MIN DUR EXAM: MG MAMMO SCREENING 60 MIN DUR CLINICAL HISTORY: SCREENING MAMMO Z12.39 HX LT BREAST CA, MASTECTOMY 2018 BILAT MRI 2023. TECHNIQUE: Craniocaudal and mediolateral oblique Full Field Digital Mammography views of the right breast with Computer Aided Diagnosis. COMPARISON: Comparison is made with prior examinations. FINDINGS: The patient is status post left mastectomy. Mammography/Tomosynthesis: Masses/Architectural Distortion: There are no suspicious masses or areas of architectural distortion present. Microcalcifictions: No suspicious pleomorphic-type are seen. Skin Thickening/Nipple Retraction: None. IMPRESSION: 1. No evidence of malignancy is noted. 2. Unless there is more urgent need, follow-up screening mammography is recommended, as per [place] [employer] guidelines. 3. The findings were discussed with the patient on the date of the examination. BI-RADS Category 1 - Negative Breast Density - Category C - The breast are heterogeneously dense, which may obscure small masses. Breast density Category C or D implies that the patient has dense breast tissue. Dense breast tissue can make it harder to find cancer on a mammogram. Dense breast tissue is also associated with an increased risk of breast cancer. This information about the result of the mammogram report was provided to the patient to raise their awareness. Use this report when you speak with the patient about their risks for breast cancer, which includes their family history. At that time, you may recommend additional screening tests (Ultrasound or MRI) as these tests may add significant information. A negative radiographic report should not delay biopsy if a dominant or clinically suspicious mass is present. Up to ten percent of cancers are not identified on mammography. A negative report may reinforce clinical impression. Adenosis and dense breasts may obscure an underlying neoplasm. False positive reports average 6 to 10%. Patient will receive a letter notifying them of these results.
== END 2025-05-26 02:26 ==
PROVIDERS: PCP Student in an Organized Health Care Education/Training Program; Visit Provider Student in an Organized Health Care Education/Training Program
DX: Z12.31 Encounter for screening mammogram for malignant neoplasm of breast (principal)
CPT/HCPCS: 77063; 77067